=== PATIENT | male | born 1955 ===

== ENCOUNTER 2017-01-28 19:27 | Inpatient (IN) | payer SELFPAY ==
[2017-01-28 19:27] VITALS: BMI 31.9
[2017-01-28] MEDS ORDERED: Albuterol-Ipratrop 3 mg / 0.5 (3 ml) UD ONE ×2 (20:15→21:29)
[2017-01-28] MEDS ORDERED: Albuterol-Ipratrop 3 mg / 0.5 (3 ml) UD IH STA ×3 (20:16→21:19)
--- NOTE | 2017-01-28 20:20 | ED PDOC ---
HPI: SOB/CHF/COPD Time Seen by Provider: 01/28/17 20:04 Chief Complaint (Nursing): Respiratory Distress Chief Complaint (Provider): sob History Per: Patient History/Exam Limitations: no limitations Onset/Duration Of Symptoms: Days (2) Additional History Per: Patient Additional Complaint(s): 61 y/o male presents with shortness of breath x 2 days. Associated cough, with some production of white sputum, nasal drainage, itchy throat. Patient notes pain to chest and ribs with cough. Patient states he was seen on the first floor of the hospital today by a doctor and prescribed an inhaler but it was too expensive. DEnies fever, nausea/vomiting, palpitations, abdominal pain, leg pain/swelling, recent travel, sick contacts. Past Medical History Reviewed: Historical Data, Nursing Documentation, Vital Signs Vital Signs: Last Vital Signs Temp 98.1 F 01/28/17 19:38 Pulse 98 H 01/28/17 22:31 Resp 22 01/28/17 22:31 BP 108/91 H 01/28/17 22:31 Pulse Ox 95 01/28/17 22:42 - Medical History PMH: Back Problems (neck pain/cervical stenosis), CAD, Hypercholesterolemia Denies: Asthma, HIV, HTN, Chronic Kidney Disease - Surgical History Surgical History: No Surg Hx - Family History Family History: States: Unknown Family Hx - Social History Current smoker - smoking cessation education provided: Yes Alcohol: None Drugs: Denies - Immunization History Hx Tetanus Toxoid Vaccination: No (11 years ago) Hx Influenza Vaccination: No Hx Pneumococcal Vaccination: No - Home Medications Home Medications: Ambulatory Orders Medication Instructions Recorded Amoxicillin/Clavulanate [Augmentin 1 tab PO BID #14 tab 10/14/16 875 MG-125 MG] oxyCODONE/Acetaminophen [Percocet 1 ea PO Q6 PRN #10 tab 10/14/16 5/325 mg Tab] - Allergies Allergies/Adverse Reactions: Allergies Allergy/AdvReac Type Severity Reaction Status Date / Time No Known Allergies Allergy Verified 01/28/17 19:38 Review of Systems ROS Statement: Except As Marked, All Systems Reviewed And Found Negative Respiratory: Positive for: Cough, Shortness of Breath Physical Exam - Reviewed Nursing Documentation Reviewed: Yes Vital Signs Reviewed: Yes - Physical Exam Appears: Positive for: Well, Non-toxic, No Acute Distress Head Exam: Positive for: ATRAUMATIC, NORMAL INSPECTION, NORMOCEPHALIC Skin: Positive for: Normal Color Eye Exam: Positive for: Normal appearance ENT: Positive for: Normal ENT Inspection Cardiovascular/Chest: Positive for: Regular Rate, Rhythm Respiratory: Positive for: Wheezing (diffuse expiratory) Gastrointestinal/Abdominal: Positive for: Normal Exam Back: Positive for: Normal Inspection Extremity: Positive for: Normal ROM Neurologic/Psych: Positive for: Alert, Oriented - Laboratory Results Result Diagrams: 01/28/17 20:30 01/28/17 20:30 - ECG ECG: Positive for: Viewed By Me (reviewed by ED attending) ECG Rhythm: Positive for: Sinus Tachycardia, Nonspecific Changes O2 Sat by Pulse Oximetry: 95 - Radiology X-Ray: Viewed By Me X-Ray Interpretation: No Acute Disease - Progress ED Course And Treament: labs, ekg, chest xray, duonebs, IV solumedrol On re-eval, diffuse wheezing still noted. Patient 96% on 2L nasal cannula; drops to 92-93% O2 on room air. Case discussed with FP resident on-call for admission. Disposition - Clinical Impression Clinical Impression: Bronchitis, Hypoxia - Patient ED Disposition Is Patient to be Admitted: Yes - Disposition Disposition Time: 22:56 Condition: FAIR
[2017-01-28 20:55] LABS: ALB/GLOB RATIO 1.4 (1.0-2.1); ALKALINE PHOSPHATASE 79 U/L (38-126); ALT/SGPT 26 U/L (21-72); AST/SGOT 30 U/L (17-59); BILIRUBIN,TOTAL 0.9 mg/dl (0.2-1.3); BLOOD UREA NITROGEN 15 mg/dl (9-20); CALCIUM 9.6 mg/dL (8.4-10.2); CARBON DIOXIDE 23 mmol/L (22-30); CHLORIDE 105 mmol/L (98-107); GFR AFRICAN-AMERICAN > 60; GLUCOSE,RANDOM 96 mg/dL (75-110); POTASSIUM 4.5 MMOL/L (3.6-5.0); SODIUM 141 mmol/l (132-148); TOTAL PROTEIN 8.2 G/DL (6.3-8.2)
[2017-01-28 21:06] LABS: BASO # 0.1 K/uL (0.0-0.2); BASO % 1.1 % (0.0-2.0); EOS # 0.4 K/uL (0.0-0.7); EOS % 6.2 % (0.0-4.0); HEMATOCRIT 46.4 % (35.0-51.0); LYMPH # 0.9 K/uL (1.0-4.3); LYMPH % 14.5 % (20.0-40.0); MEAN CELL VOLUME 89.5 fl (80.0-94.0); MEAN CORPUSCULAR HEMOGLOBIN 29.3 pg (27.0-31.0); MEAN CORPUSCULAR HGB CONC 32.7 g/dL (33.0-37.0); MEAN PLATELET VOLUME 10.4 fl (7.2-11.7); MONO # 0.6 K/uL (0.0-0.8); MONO % 9.6 % (0.0-10.0); NEUT # 4.2 K/uL (1.8-7.0); NEUT % 68.6 % (50.0-75.0); NRBC % 0.1 % (0.0-0.0); RED CELL DISTRIBUTION WIDTH 14.3 % (11.5-14.5); WHITE BLOOD COUNT 6.1 K/uL (4.8-10.8)
--- NOTE | 2017-01-28 23:11 | CP.PCM.HP ---
History of Present Illness - History of Present Illness History of Present Illness: CC: Progressively worsening dyspnea x 2 days 61 y/o M, 1/2 PPD smoker x 44 years admitted due to progressively worsening dyspnea x 2 days. Associated cough, with some production of white sputum, nasal drainage, itchy throat. Patient also notes pleuritic chest pain during coughing. Denies fever, chills, change in appetite, recent weight loss/gain/ edema/ nausea/vomiting, palpitations, abdominal pain, leg pain/swelling, recent travel, sick contacts. Not taking any medications previously, can walk 5-6 blocks w/o feeling SOB, can climb 1-2 flights of stairs. Patient was seen by cardio, Dr Duffy today for evaluation of dyspnea with previous discrepancy of EF between last ECHO and Lexiscan. Patient was prescribed Advair but did not fill it due to increased cost of the medicine. Ended up in ER due to SOB. PMD: [facility] PMH: varicose veins PSH: denies SH: 1/2 PPD smoker x 44 years, social eTOH, denies drugs Allergies: NKDA Meds: none ED course: labs, ekg, chest xray, duonebsx 3, IV solumedrol 125 mg x 1 Patient 96% on 2L nasal cannula; drops to 92-93% O2 on room air. Present on Admission - Present on Admission Any Indicators Present on Admission: No Review of Systems - Review of Systems Review of Systems: see hpi Past Patient History - Infectious Disease Hx of Infectious Diseases: None - Tetanus Immunizations Tetanus Immunization: Unknown - Past Medical History & Family History Past Medical History?: Yes - Past Social History Alcohol: None Drugs: Denies - CARDIAC Hx Hypercholesterolemia: Yes Hx Hypertension: No - PULMONARY Hx Asthma: No - NEUROLOGICAL Other/Comment: neck pain, headaches - HEENT Hx HEENT Problems: No - RENAL Hx Chronic Kidney Disease: No - ENDOCRINE/METABOLIC Hx Endocrine Disorders: No - HEMATOLOGICAL/ONCOLOGICAL Hx Human Immunodeficiency Virus (HIV): No - INTEGUMENTARY Hx Dermatological Problems: No - MUSCULOSKELETAL/RHEUMATOLOGICAL Hx Musculoskeletal Disorders: Yes (neck pain, headaches) Hx Falls: No Other/Comment: spinal stenosis - GASTROINTESTINAL Hx Gastrointestinal Disorders: No - GENITOURINARY/GYNECOLOGICAL Hx Genitourinary Disorders: No - PSYCHIATRIC Hx Psychophysiologic Disorder: No Hx Substance Use: No - SURGICAL HISTORY Hx Surgeries: Yes Other/Comment: Neck surgery - ANESTHESIA Hx Anesthesia: Yes Meds Allergies/Adverse Reactions: Allergies Allergy/AdvReac Type Severity Reaction Status Date / Time No Known Allergies Allergy Verified 01/28/17 19:38 Physical Exam - Constitutional Appears: Non-toxic, No Acute Distress - Head Exam Head Exam: ATRAUMATIC - Eye Exam Eye Exam: EOMI Pupil Exam: PERRL - ENT Exam ENT Exam: Mucous Membranes Moist - Neck Exam Neck exam: Positive for: Full Rom. Negative for: Tenderness - Respiratory Exam Respiratory Exam: Decreased Breath Sounds, Wheezes. absent: Accessory Muscle Use, Rales, Rhonchi, Respiratory Distress, Stridor Additional comments: BL lower lung bases decreased breath sounds; diffuse expiratory and inspiratory wheezing, no accessory muscle use - Cardiovascular Exam Cardiovascular Exam: +S1 - GI/Abdominal Exam GI & Abdominal Exam: Normal Bowel Sounds, Soft. absent: Guarding, Rigid, Tenderness - Extremities Exam Extremities exam: Positive for: normal inspection, pedal pulses present. Negative for: calf tenderness, pedal edema - Neurological Exam Neurological exam: Alert, Oriented x3 - Psychiatric Exam Psychiatric exam: Normal Affect, Normal Mood - Skin Skin Exam: Dry, Normal Color, Warm Results - Vital Signs Recent Vital Signs: Last Vital Signs Temp 98.1 F 01/28/17 19:38 Pulse 98 H 01/28/17 22:31 Resp 22 01/28/17 22:31 BP 108/91 H 01/28/17 22:31 Pulse Ox 95 01/28/17 22:58 - Labs Result Diagrams: 01/28/17 20:30 01/28/17 20:30 Labs: Laboratory Results - last 24 hr 01/28/17 01/28/17 01/28/17 20:30 20:30 20:30 WBC 6.1 RBC 5.18 Hgb 15.2 Hct 46.4 MCV 89.5 D MCH 29.3 MCHC 32.7 L RDW 14.3 Plt Count 193 MPV 10.4 Neut % (Auto) 68.6 Lymph % (Auto) 14.5 L [place] % (Auto) 9.6 Eos % (Auto) 6.2 H Baso % (Auto) 1.1 Neut # 4.2 Lymph # 0.9 L [place] # 0.6 Eos # 0.4 Baso # 0.1 Sodium 141 Potassium 4.5 Chloride 105 Carbon Dioxide 23 Anion Gap 18 BUN 15 Creatinine 0.9 Est GFR ( Amer) > 60 Est GFR (Non-Af Amer) > 60 Random Glucose 96 Calcium 9.6 Total Bilirubin 0.9 AST 30 ALT 26 Alkaline Phosphatase 79 Troponin I < 0.0120 NT-Pro-B Natriuret Pep 120 Total Protein 8.2 Albumin 4.8 Globulin 3.4 Albumin/Globulin Ratio 1.4 Influenza Typ A,B (EIA) Negative for flu a/b Assessment & Plan - Assessment and Plan (Free Text) Plan: 61 y/o M, 1/2 PPD smoker x 44 years admitted due to progressively worsening dyspnea x 2 days. Dyspnea likely 2/2 COPD, evaluated by cardiology as outpatient 01/28, no cardiac etiology at present time ED course: labs, ekg, chest xray, duonebsx 3, IV solumedrol 125 mg x 1 pro bnp 120, trop x 1 negative, cxr does not reveal cardiomegaly Patient 96% on 2L nasal cannula; drops to 92-93% O2 on room air. admit to telemetry pulse oximetry O2 NC 2L cont Duonebs IH QID MELISSA Prednisone 40 mg daily reassess in AM, optimize COPD home regimen PPx DVT - SCDs and ambulate Diet HH
[2017-01-29] MEDS ORDERED: Albuterol-Ipratrop 3 mg / 0.5 (3 ml) UD INH SCH (01:00)
[2017-01-29] MEDS ORDERED: Pneumococcal 23-Valent Vaccine IM ONE (06:00)
[2017-01-29 07:29] LABS: HEMATOCRIT 44.3 % (35.0-51.0); MEAN CELL VOLUME 89.1 fl (80.0-94.0); MEAN CORPUSCULAR HGB CONC 32.6 g/dL (33.0-37.0); RED CELL DISTRIBUTION WIDTH 14.4 % (11.5-14.5); WHITE BLOOD COUNT 4.8 K/uL (4.8-10.8)
[2017-01-29 07:31] LABS: BLOOD UREA NITROGEN 14 mg/dl (9-20); CALCIUM 9.6 mg/dL (8.4-10.2); CARBON DIOXIDE 22 mmol/L (22-30); CHLORIDE 104 mmol/L (98-107); GFR AFRICAN-AMERICAN > 60; GLUCOSE,RANDOM 144 mg/dL (75-110); POTASSIUM 3.8 MMOL/L (3.6-5.0); SODIUM 142 mmol/l (132-148)
[2017-01-29] MEDS: Albuterol-Ipratrop 3 mg / 0.5 (3 ml) UD INH SCH ×4 (07:39→19:30)
[2017-01-29] MEDS ORDERED: Sodium Chloride 3% for Inhalation 4 ML VIAL.NEB IH PRN (09:40)
--- NOTE | 2017-01-29 10:01 | RAD ---
HISTORY: cough, wheezing COMPARISON: 12/17/2016. FINDINGS: LUNGS: No active pulmonary disease. PLEURA: No significant pleural effusion identified, no pneumothorax apparent. CARDIOVASCULAR: Normal. OSSEOUS STRUCTURES: No significant abnormalities. VISUALIZED UPPER ABDOMEN: Normal. OTHER FINDINGS: None. IMPRESSION: No active disease. No significant interval change compared to the prior examination(s).
--- NOTE | 2017-01-29 11:14 | CP.PCM.PN ---
Subjective - Date & Time of Evaluation Date of Evaluation: 01/29/17 Time of Evaluation: 07:20 - Subjective Subjective: Patient seen and evaluated this morning. NO acute distress. He is on NC O2, denies CP, palpitations, headache, fever, vomiting. C/O productive cough that has improved since yesterday. Patient reports Hx of hemoptisis in the past more than 20 years ago. Sputum sample collected overnight and will be send. Patient was seen by Dr Duffy(Cardio) at the clinic for SOB and outpatient notes were reviewed on [facility]. As per Cardio patient SOB most likely origin is respiratory. Objective - Vital Signs/Intake and Output Vital Signs (last 24 hours): Temp Pulse Resp BP Pulse Ox 97.8 F 72 18 120/73 95 01/29/17 08:18 01/29/17 08:18 01/29/17 08:18 01/29/17 08:18 01/29/17 08:18 - Medications Medications: Current Medications Acetaminophen (Tylenol 325mg Tab) 650 mg PO Q6 PRN PRN Reason: Fever >100.4 F Albuterol/Ipratropium (Duoneb 3 Mg/0.5 Mg (3 Ml) Ud) 3 ml INH RQID [facility] Last Admin: 01/29/17 07:39 Dose: 3 ml Levofloxacin/Dextrose (Levaquin 750mg) 750 mg in 150 mls @ 100 mls/hr IVPB DAILY [facility] Prednisone (Prednisone Tab) 40 mg PO DAILY [facility] Last Admin: 01/29/17 08:37 Dose: 40 mg - Labs Labs: 01/29/17 07:00 01/29/17 05:05 - Constitutional Appears: Non-toxic - Eye Exam Eye Exam: PERRL - ENT Exam ENT Exam: Mucous Membranes Moist - Respiratory Exam Respiratory Exam: Wheezes. absent: Rales (diffuse b/l), Respiratory Distress - Cardiovascular Exam Cardiovascular Exam: REGULAR RHYTHM, +S1, +S2. absent: Gallop, Murmur - GI/Abdominal Exam GI & Abdominal Exam: Soft, Normal Bowel Sounds. absent: Distended, Rebound - Extremities Exam Extremities Exam: Full ROM, Normal Capillary Refill, Normal Inspection - Neurological Exam Neurological Exam: Alert, Awake, Oriented x3 Neuro motor strength exam: Left Upper Extremity: 5, Right Upper Extremity: 5, Left Lower Extremity: 5, Right Lower Extremity: 5 - Psychiatric Exam Psychiatric exam: Normal Affect, Normal Mood - Skin Skin Exam: Normal Color, Warm Assessment and Plan - Assessment and Plan (Free Text) Assessment: 61 y/o M, 1/2 PPD smoker x 44 years admitted due to SOB. SOB most likely COPD exacerbation rule out Pneumonia Improved possible COPD exacerbation(chronic smoker) evaluated by cardiology as outpatient 01/28, no cardiac etiology at present time chest xray reported as normal. Hx of hemoptisis Chest CT ordered Sputum for AFB, Cx and Citology Patient placed on isolation [facility] QID MELISSA Prednisone 40 mg daily Start Levaquin 750mg daily for now pending CT/Cx results Pulmonology consult(Dr Salamanca) Prophylactic measures PPx DVT - SCDs and ambulate
[2017-01-29] MEDS: levoFLOXacin 750 mg in D5W 750 MG/150 ML BAG IVPB SCH (11:37)
--- NOTE | 2017-01-29 13:33 | CARD ---
APPROVED REPORT EKG Measurement Heart [id number] <Conclusion> Sinus tachycardia Nonspecific ST abnormality Abnormal ECG
[2017-01-30 05:49] LABS: BASO % 0.3 % (0.0-2.0); EOS % 0.7 % (0.0-4.0); HEMATOCRIT 40.2 % (35.0-51.0); LYMPH # 1.5 K/uL (1.0-4.3); LYMPH % 23.8 % (20.0-40.0); MEAN CELL VOLUME 89.1 fl (80.0-94.0); MEAN CORPUSCULAR HEMOGLOBIN 29.4 pg (27.0-31.0); MEAN CORPUSCULAR HGB CONC 32.9 g/dL (33.0-37.0); MEAN PLATELET VOLUME 10.1 fl (7.2-11.7); MONO # 0.7 K/uL (0.0-0.8); NEUT % 64.2 % (50.0-75.0); RED CELL DISTRIBUTION WIDTH 14.3 % (11.5-14.5); WHITE BLOOD COUNT 6.3 K/uL (4.8-10.8)
[2017-01-30] MEDS: Albuterol-Ipratrop 3 mg / 0.5 (3 ml) UD INH SCH ×4 (09:24→19:21)
[2017-01-30] MEDS: levoFLOXacin 750 mg in D5W 750 MG/150 ML BAG IVPB SCH (09:25)
--- NOTE | 2017-01-30 14:19 | CT ---
PROCEDURE: CT Chest without contrast HISTORY: Cough/SOB/Smoker COMPARISON: None. TECHNIQUE: Contiguous axial images were obtained through the chest without intravenous contrast enhancement. Sagittal and coronal reconstructions were performed. Radiation dose (DLP): 655.47 mGy-cm. This CT exam was performed using one or more of the following dose reduction techniques: Automated exposure control, adjustment of the mA and/or kV according to patient size, and/or use of iterative reconstruction technique. FINDINGS: LUNGS: Increased interstitial markings compatible with lower airways disease. No discrete pulmonary infiltrates. Mild atelectatic changes bibasilar distribution. Similar changes in the lingula. MEDIASTINUM: Unremarkable thoracic aorta. No aneurysm. Normal sized heart. Main pulmonary artery unremarkable. No vascular congestion. No lymphadenopathy. PLEURA: No pleural fluid. No pneumothorax. BONES: No fracture. No destructive lesion. UPPER ABDOMEN: Grossly unremarkable. OTHER FINDINGS: None. IMPRESSION: No significant interstitial lung disease. Prominent central pulmonary markings compatible with lower airways disease, bronchitis. No discrete infiltrates
[2017-01-30] MEDS: Enoxaparin 40 mg Syringe SC SCH (14:58)
--- NOTE | 2017-01-30 15:03 | CP.PCM.PN ---
Subjective - Date & Time of Evaluation Date of Evaluation: 01/30/17 Time of Evaluation: 10:50 - Subjective Subjective: 61 y/o seen at bedside. no acute events overnight. Patient in ICU because no isolation bed available in floor. He states SOB and cough have improved, no hemoptysis. Denies CP, palpitations, vomiting, fever or nausea. Patient for chest CT today. Sputum being collected and results pending. Tolerating PO. Patient offered nicotin patch but states he has not felt the urge to smoke while in the hosp so far. Objective - Vital Signs/Intake and Output Vital Signs (last 24 hours): Temp Pulse Resp BP Pulse Ox 97.6 F 69 11 L 114/67 100 01/30/17 12:27 01/30/17 13:00 01/30/17 13:00 01/30/17 13:00 01/30/17 13:00 Intake and Output: 01/30/17 01/30/17 06:59 18:59 Intake Total 1160 800 Output Total 2400 300 Balance -1240 500 - Medications Medications: Current Medications Acetaminophen (Tylenol 325mg Tab) 650 mg PO Q6 PRN PRN Reason: Fever >100.4 F Albuterol/Ipratropium (Duoneb 3 Mg/0.5 Mg (3 Ml) Ud) 3 ml INH RQID [facility] Last Admin: 01/30/17 12:07 Dose: 3 ml Enoxaparin Sodium (Lovenox) 40 mg SC DAILY [facility] PRN Reason: Protocol Last Admin: 01/30/17 14:58 Dose: 40 mg Levofloxacin/Dextrose (Levaquin 750mg) 750 mg in 150 mls @ 100 mls/hr IVPB DAILY [facility] Last Admin: 01/30/17 09:25 Dose: 100 mls/hr Prednisone (Prednisone Tab) 40 mg PO DAILY [facility] Last Admin: 01/30/17 09:26 Dose: 40 mg - Labs Labs: 01/30/17 04:30 - Constitutional Appears: Non-toxic, No Acute Distress - Eye Exam Eye Exam: EOMI, PERRL - ENT Exam ENT Exam: Mucous Membranes Moist - Neck Exam Neck Exam: Full ROM - Respiratory Exam Respiratory Exam: Rhonchi. absent: Decreased Breath Sounds, Rales, Wheezes - Cardiovascular Exam Cardiovascular Exam: REGULAR RHYTHM, +S1, +S2 - GI/Abdominal Exam GI & Abdominal Exam: Soft, Normal Bowel Sounds. absent: Distended, Rebound - Extremities Exam Extremities Exam: Full ROM, Normal Capillary Refill, Normal Inspection - Neurological Exam Neurological Exam: Alert, Awake, Oriented x3 - Psychiatric Exam Psychiatric exam: Normal Affect, Normal Mood - Skin Skin Exam: Intact, Normal Color, Warm Assessment and Plan - Assessment and Plan (Free Text) Assessment: 61 y/o M, 1/2 PPD smoker x 44 years admitted due to SOB. SOB most likely COPD exacerbation Improved possible COPD exacerbation(chronic smoker) evaluated by cardiology as outpatient 01/28, no cardiac etiology at present time chest xray reported as normal. Hx of hemoptisis Chest CT: +for Bronchitis(please see full report) Sputum for AFB, Cx and Citology pending Gram+ for gram +cocci Patient on isolation Duonebs QID MELISSA Prednisone 40 mg daily Levaquin 750mg daily for now pending CT/Cx results Pulmonology consult(Dr Salamanca) Prophylactic measures PPx DVT - SCDs and ambulate Lovenox 40mg daily
--- NOTE | 2017-01-30 21:31 | CP.PCM.CON ---
History of Present Illness - History of Present Illness History of Present Illness: Patient seen and examined; chart reviewed; full consult to follow. Cont same treatment for now. Patient stated to me in [place]; this all followed being exposed to paint fumes the day before. Past Patient History - Infectious Disease Hx of Infectious Diseases: None - Tetanus Immunizations Tetanus Immunization: Unknown - Past Medical History & Family History Past Medical History?: Yes - Past Social History Smoking Status: Smoker Currrent Status Unknown - CARDIAC Hx Cardiac Disorders: Yes Hx Hypercholesterolemia: Yes - PULMONARY Hx Asthma: No - NEUROLOGICAL Other/Comment: neck pain, headaches - HEENT Hx HEENT Problems: Yes Other/Comment: Uses glasses nearsighted and farsighted. - RENAL Hx Chronic Kidney Disease: No - ENDOCRINE/METABOLIC Hx Endocrine Disorders: No - HEMATOLOGICAL/ONCOLOGICAL Hx Human Immunodeficiency Virus (HIV): No - INTEGUMENTARY Hx Dermatological Problems: No - MUSCULOSKELETAL/RHEUMATOLOGICAL Hx Musculoskeletal Disorders: Yes (neck pain, headaches) Hx Back Pain: Yes Hx Falls: Yes Other/Comment: spinal stenosis - GASTROINTESTINAL Hx Gastrointestinal Disorders: No - GENITOURINARY/GYNECOLOGICAL Hx Genitourinary Disorders: No - PSYCHIATRIC Hx Psychophysiologic Disorder: No Hx Substance Use: No - SURGICAL HISTORY Hx Surgeries: Yes Other/Comment: Neck surgery - ANESTHESIA Hx Anesthesia: Yes Hx Anesthesia Reactions: No Hx Malignant Hyperthermia: No Has any member of the family had a problem w/ anesthesia?: No Meds Allergies/Adverse Reactions: Allergies Allergy/AdvReac Type Severity Reaction Status Date / Time No Known Allergies Allergy Verified 01/28/17 19:38 - Medications Medications: Current Medications Acetaminophen (Tylenol 325mg Tab) 650 mg PO Q6 PRN PRN Reason: Fever >100.4 F Albuterol/Ipratropium (Duoneb 3 Mg/0.5 Mg (3 Ml) Ud) 3 ml INH RQID [facility] Last Admin: 01/30/17 19:21 Dose: 3 ml Enoxaparin Sodium (Lovenox) 40 mg SC DAILY [facility] PRN Reason: Protocol Last Admin: 01/30/17 14:58 Dose: 40 mg Levofloxacin/Dextrose (Levaquin 750mg) 750 mg in 150 mls @ 100 mls/hr IVPB DAILY [facility] Last Admin: 01/30/17 09:25 Dose: 100 mls/hr Prednisone (Prednisone Tab) 40 mg PO DAILY [facility] Last Admin: 01/30/17 09:26 Dose: 40 mg Results - Vital Signs Recent Vital Signs: Last Vital Signs Temp 97 F L 01/30/17 20:02 Pulse 110 H 01/30/17 20:02 Resp 25 H 01/30/17 20:02 BP 138/82 01/30/17 20:02 Pulse Ox 99 01/30/17 20:02 - Labs Result Diagrams: 01/30/17 04:30 01/29/17 05:05 Labs: Laboratory Results - last 24 hr 01/30/17 04:30 WBC 6.3 RBC 4.52 Hgb 13.3 Hct 40.2 MCV 89.1 MCH 29.4 MCHC 32.9 L RDW 14.3 Plt Count 176 MPV 10.1 Neut % (Auto) 64.2 Lymph % (Auto) 23.8 [place] % (Auto) 11.0 H Eos % (Auto) 0.7 Baso % (Auto) 0.3 Neut # 4.0 Lymph # 1.5 [place] # 0.7 Eos # 0.0 Baso # 0.0
[2017-01-31] MEDS: levoFLOXacin 750 mg in D5W 750 MG/150 ML BAG IVPB SCH (09:04)
--- NOTE | 2017-01-31 09:06 | RAD ---
HISTORY: Repeat pneumonia. Portable study 04:55. COMPARISON: 01/28/2017 single-view chest. January 30, 2017. CT thorax. FINDINGS: LUNGS: No active pulmonary disease. PLEURA: No significant pleural effusion identified, no pneumothorax apparent. CARDIOVASCULAR: Normal. OSSEOUS STRUCTURES: No significant abnormalities. VISUALIZED UPPER ABDOMEN: Normal. OTHER FINDINGS: None. IMPRESSION: No active disease. No significant interval change compared to the prior examination(s).
[2017-01-31] MEDS: Albuterol-Ipratrop 3 mg / 0.5 (3 ml) UD INH SCH ×4 (09:14→19:21)
--- NOTE | 2017-01-31 11:58 | CP.PCM.PN ---
Subjective - Date & Time of Evaluation Date of Evaluation: 01/31/17 Time of Evaluation: 09:05 - Subjective Subjective: 60 y/o M seen at bedside admitted for COPD exacerbation, feeling better, he say SOB has markedly improved, still sporadic cough but improved. Tolerating PO reg diet. Denies CP, palpitations, calf pain, headaches. He is afebrile Objective - Vital Signs/Intake and Output Vital Signs (last 24 hours): Temp Pulse Resp BP Pulse Ox 97.5 F L 82 12 126/80 94 L 01/31/17 08:40 01/31/17 08:40 01/31/17 08:40 01/31/17 08:40 01/31/17 08:40 Intake and Output: 01/31/17 01/31/17 06:59 18:59 Intake Total 100 Output Total 1550 Balance -1450 - Medications Medications: Current Medications Acetaminophen (Tylenol 325mg Tab) 650 mg PO Q6 PRN PRN Reason: Fever >100.4 F Albuterol/Ipratropium (Duoneb 3 Mg/0.5 Mg (3 Ml) Ud) 3 ml INH RQID [facility] Last Admin: 01/31/17 09:14 Dose: 3 ml Enoxaparin Sodium (Lovenox) 40 mg SC DAILY [facility] PRN Reason: Protocol Last Admin: 01/30/17 14:58 Dose: 40 mg Levofloxacin/Dextrose (Levaquin 750mg) 750 mg in 150 mls @ 100 mls/hr IVPB DAILY [facility] Last Admin: 01/31/17 09:04 Dose: 100 mls/hr Prednisone (Prednisone Tab) 40 mg PO DAILY [facility] Stop: 01/31/17 23:59 Last Admin: 01/31/17 09:04 Dose: 40 mg Prednisone (Prednisone Tab) 20 mg PO DAILY [facility] - Labs Labs: 01/30/17 04:30 - Constitutional Appears: Non-toxic, No Acute Distress - Head Exam Head Exam: NORMAL INSPECTION - Eye Exam Eye Exam: PERRL - ENT Exam ENT Exam: Mucous Membranes Moist - Respiratory Exam Respiratory Exam: Rhonchi (scattered b/l), NORMAL BREATHING PATTERN - Cardiovascular Exam Cardiovascular Exam: REGULAR RHYTHM, +S1, +S2. absent: Gallop - GI/Abdominal Exam GI & Abdominal Exam: Soft, Normal Bowel Sounds - Neurological Exam Neurological Exam: Alert, Awake, Oriented x3 Neuro motor strength exam: Left Upper Extremity: 5, Right Upper Extremity: 5, Left Lower Extremity: 5, Right Lower Extremity: 5 - Psychiatric Exam Psychiatric exam: Normal Affect, Normal Mood - Skin Skin Exam: Intact, Normal Color, Warm Assessment and Plan - Assessment and Plan (Free Text) Assessment: 61 y/o M, 1/2 PPD smoker x 44 years admitted due to SOB. SOB most likely COPD exacerbation Improved possible COPD exacerbation(chronic smoker) evaluated by cardiology as outpatient 01/28, no cardiac etiology at present time Hx of hemoptisis AFB sputum x1 neg Quantiferon negative Patient on isolation until sputum x3 neg: TB very unlikely Duonebs IH QID MELISSA Prednisone 20 mg daily Levaquin 750mg daily for now pending CT/Cx results Pulmonology consult(Dr Salamanca) PT eval and treatment ordered. Bacterial Bronchitis Chest CT:finding compatible with Bronchitis(please see full report) Gram prelim sputum Cx + for gram +cocci Cont Levaquin to complete 7 days Prophylactic measures PPx DVT - SCDs and ambulate Lovenox 40mg daily
--- NOTE | 2017-01-31 23:37 | CP.PCM.PN ---
Subjective - Subjective Subjective: COPD ex. Being r/o for TB, unlikely given paucity of other Sx. 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 former smoker. NKDA, Sx: Feeling much better. O/vss afebrile Head Neg adeno, Neg JVD Heart RRR Ns1S2 Neg M Lungs, bilateral air entry, slight decrease in Left apex. Abdo, s, nt, pos bs no c,c,e Neuro GNF a/p COPD, Chemical Bronchitis inducing exacerbation. I do not consider this to be PTB at all. Cont current abx. Monitor wbc #, temp curve, and cultures. Continue to r/o with serial AFB studies. Cont steriods and nebulized duonebs. PUD and DVT Px. Signing out of case; taper steroids, and re-consult PRN. If continues stable, change steroids and abx to po, and to f/u with me at my office. [phone] Objective - Vital Signs/Intake and Output Vital Signs (last 24 hours): Temp Pulse Resp BP Pulse Ox 97.7 F 90 25 H 119/93 H 97 01/31/17 20:00 01/31/17 20:00 01/31/17 20:00 01/31/17 20:00 01/31/17 20:00 Intake and Output: 01/31/17 02/01/17 18:59 06:59 Intake Total 1690 120 Output Total 1000 Balance 1690 -880 - Medications Medications: Current Medications Acetaminophen (Tylenol 325mg Tab) 650 mg PO Q6 PRN PRN Reason: Fever >100.4 F Albuterol/Ipratropium (Duoneb 3 Mg/0.5 Mg (3 Ml) Ud) 3 ml INH RQID [facility] Last Admin: 01/31/17 19:21 Dose: Not Given Enoxaparin Sodium (Lovenox) 40 mg SC DAILY [facility] PRN Reason: Protocol Last Admin: 01/30/17 14:58 Dose: 40 mg Levofloxacin/Dextrose (Levaquin 750mg) 750 mg in 150 mls @ 100 mls/hr IVPB DAILY [facility] Last Admin: 01/31/17 09:04 Dose: 100 mls/hr Prednisone (Prednisone Tab) 40 mg PO DAILY [facility] Stop: 01/31/17 23:59 Last Admin: 01/31/17 09:04 Dose: 40 mg Prednisone (Prednisone Tab) 20 mg PO DAILY [facility] - Labs Labs: 01/30/17 04:30
[2017-02-01] MEDS: Albuterol-Ipratrop 3 mg / 0.5 (3 ml) UD INH SCH ×2 (09:18→12:12)
[2017-02-01] MEDS ORDERED: levoFLOXacin 750 MG TAB PO SCH (10:00)
[2017-02-01] MEDS: Enoxaparin 40 mg Syringe SC SCH (10:51)
--- NOTE | 2017-02-01 11:12 | CP.PCM.DIS ---
Provider - Provider Date of Admission: 01/29/17 13:05 Attending physician: Lashawn Leonardo MD Consults: Pulmonology(Dr Salamanca) Time Spent in preparation of Discharge (in minutes): 30 Diagnosis - Discharge Diagnosis (1) COPD exacerbation Status: Acute Comment: IMproved. Albuterol HFA and Follow with pulm as outpatient (2) Bronchitis Status: Acute Comment: improved. Finished 5 days abx Hospital Course - Lab Results Lab Results: Micro Results 01/30/17 11:02 Other: Please Indicate Mycobacterial Culture - Preliminary 01/29/17 17:20 Sputum Gram Stain - Final 01/29/17 17:20 Sputum Sputum Culture - Final NORMAL ORAL DYLAN 01/29/17 17:20 Naris MRSA Culture (Admit) - Final MRSA NOT DETECTED Most Recent Lab Values WBC 6.3 K/uL (4.8-10.8) 01/30/17 04:30 RBC 4.52 Mil/uL (4.40-5.90) 01/30/17 04:30 Hgb 13.3 g/dL (12.0-18.0) 01/30/17 04:30 Hct 40.2 % (35.0-51.0) 01/30/17 04:30 MCV 89.1 fl (80.0-94.0) 01/30/17 04:30 MCH 29.4 pg (27.0-31.0) 01/30/17 04:30 MCHC 32.9 g/dL (33.0-37.0) L 01/30/17 04:30 RDW 14.3 % (11.5-14.5) 01/30/17 04:30 Plt Count 176 K/uL (130-400) 01/30/17 04:30 MPV 10.1 fl (7.2-11.7) 01/30/17 04:30 Neut % (Auto) 64.2 % (50.0-75.0) 01/30/17 04:30 Lymph % (Auto) 23.8 % (20.0-40.0) 01/30/17 04:30 [place] % (Auto) 11.0 % (0.0-10.0) H 01/30/17 04:30 Eos % (Auto) 0.7 % (0.0-4.0) 01/30/17 04:30 Baso % (Auto) 0.3 % (0.0-2.0) 01/30/17 04:30 Neut # 4.0 K/uL (1.8-7.0) 01/30/17 04:30 Lymph # 1.5 K/uL (1.0-4.3) 01/30/17 04:30 [place] # 0.7 K/uL (0.0-0.8) 01/30/17 04:30 Eos # 0.0 K/uL (0.0-0.7) 01/30/17 04:30 Baso # 0.0 K/uL (0.0-0.2) 01/30/17 04:30 Sodium 142 mmol/l (132-148) 01/29/17 05:05 Potassium 3.8 MMOL/L (3.6-5.0) 01/29/17 05:05 Chloride 104 mmol/L (98-107) 01/29/17 05:05 Carbon Dioxide 22 mmol/L (22-30) 01/29/17 05:05 Anion Gap 20 (10-20) 01/29/17 05:05 BUN 14 mg/dl (9-20) 01/29/17 05:05 Creatinine 0.9 mg/dL (0.8-1.5) 01/29/17 05:05 Est GFR ( Amer) > 60 01/29/17 05:05 Est GFR (Non-Af Amer) > 60 01/29/17 05:05 Random Glucose 144 mg/dL (75-110) H 01/29/17 05:05 Calcium 9.6 mg/dL (8.4-10.2) 01/29/17 05:05 Total Bilirubin 0.9 mg/dl (0.2-1.3) 01/28/17 20:30 AST 30 U/L (17-59) 01/28/17 20:30 ALT 26 U/L (21-72) 01/28/17 20:30 Alkaline Phosphatase 79 U/L (38-126) 01/28/17 20:30 Troponin I < 0.0120 ng/mL (0.00-0.120) 01/28/17 20:30 NT-Pro-B Natriuret Pep 120 pg/ml (0-900) 01/28/17 20:30 Total Protein 8.2 G/DL (6.3-8.2) 01/28/17 20:30 Albumin 4.8 g/dL (3.5-5.0) 01/28/17 20:30 Globulin 3.4 gm/dL (2.2-3.9) 01/28/17 20:30 Albumin/Globulin Ratio 1.4 (1.0-2.1) 01/28/17 20:30 HIV-1 Ab Rapid Screen Non reactive (NON REAC) 01/31/17 05:05 Influenza Typ A,B (EIA) Negative for flu a/b (NEGATIVE) 01/28/17 20:30 TB Test (QFT) Nil 0.02 IU/mL 01/29/17 12:30 TB Test Mitogen - Nil 0.59 IU/mL 01/29/17 12:30 TB Test TB - Nil <0.00 IU/mL 01/29/17 12:30 TB Test (QFT) Negative (Negative) 01/29/17 12:30 - Hospital Course Hospital Course: 61 y/o M with PMHx of tobacco abuse was admitted to hosp because of SOB and productive cough. Pt has Hx of Pneumonia with hemoptysis in the past many years ago. He is chronic smoker of 1/2 pack daily. XRay/CT chest showed signs consistent with bronchitis and he was treated with Levofloxacin for 5 days, nebulizers and steroids. 2 Sputum for AFB were negative as well as quantiferon test. Patient improved successfully and on 02/01/17 was discharge home asymptomatic and f/u as outpatient with PMD and Pulmonology(Dr Salamanca) for COPD management. Home meds at DC: Albuterol HFA Inh 2 puff q6h PRN for SOB Discharge Exam - Head Exam Head Exam: NORMAL INSPECTION - Eye Exam Eye Exam: EOMI, PERRL - Respiratory Exam Respiratory Exam: Clear to PA & Lateral, NORMAL BREATHING PATTERN, UNREMARKABLE - Cardiovascular Exam Cardiovascular Exam: REGULAR RHYTHM, +S1, +S2. absent: Gallop - GI/Abdominal Exam GI & Abdominal Exam: Normal Bowel Sounds, Unremarkable - Extremities Exam Extremities exam: full ROM - Neurological Exam Neurological exam: Alert, Normal Gait, Oriented x3, Reflexes Normal - Psychiatric Exam Psychiatric exam: Normal Affect, Normal Mood - Skin Skin Exam: Normal Color, Warm Discharge Plan - Discharge Medications Prescriptions: Albuterol HFA [Ventolin HFA 90 mcg/actuation (8 g)] 2 puff IH [id number] PRN #1 puff PRN Reason: Shortness Of Breath - Follow Up Plan Condition: FAIR Disposition: HOME/ ROUTINE Additional Instructions: F/U with PMd in 2-3days F/U with Pulmonology (Dr Salamanca) within 1 week. Smoking cessation need discussed with patient.
[2017-02-01 13:27] VITALS: BP 128/67; PULSE 84; RESP 21; TEMP 98; O2SAT 96
== END 2017-02-01 13:15 | disposition home or self-care (01) | DRG 88 ==
LOC: H.ER 19:27 → H.ERHOLD 22:53 → H.TEL 01-29 00:16 → H.ICU/CCU 01-29 12:18 → OBSVTOIN 01-29 13:05
PROVIDERS: ADMIT Family Medicine Geriatric Medicine; ATTEND Family Medicine Geriatric Medicine
PROC: 3E0F7GC Introduction of Other Therapeutic Substance into Respiratory Tract, Via Natural or Artificial Opening (ICD-10-PCS; principal; 2017-01-29)
PROC: 3E0234Z Introduction of Serum, Toxoid and Vaccine into Muscle, Percutaneous Approach (ICD-10-PCS; 2017-01-29)
DX: J44.1 Chronic obstructive pulmonary disease with (acute) exacerbation (principal); J68.0 Bronchitis and pneumonitis due to chemicals, gases, fumes and vapors; F17.200 Nicotine dependence, unspecified, uncomplicated; I25.10 Atherosclerotic heart disease of native coronary artery without angina pectoris; E78.00 Pure hypercholesterolemia, unspecified; Z23 Encounter for immunization

== ENCOUNTER 2017-03-30 01:58 | Observation (INO) | payer SELFPAY ==
[2017-03-30 01:58] VITALS: BMI 31.9
[2017-03-30] MEDS ORDERED: Albuterol-Ipratrop 3 mg / 0.5 (3 ml) UD INH STA ×4 (02:25→03:41)
[2017-03-30] MEDS ORDERED: methylPREDNISolone 125 MG in Sodium Chloride 0.9% 50 ML IVPB STA (02:25)
--- NOTE | 2017-03-30 02:28 | ED PDOC ---
HPI: SOB/CHF/COPD Time Seen by Provider: 03/30/17 02:01 Chief Complaint (Nursing): Respiratory Distress Chief Complaint (Provider): Shortness of breath History Per: Patient History/Exam Limitations: intoxication, language barrier Onset/Duration Of Symptoms: Days Current Symptoms Are (Timing): Still Present Initiating Event: Out Of Medications Current Respiratory Medications: See Home Med List Severity: Severe Associated Symptoms: denies: Fever, Chills, Chest Pain, Productive Cough Similar Symptoms Previously: yes in January 2017 Recently: Hospitalized Additional History Per: Patient Additional Complaint(s): 61 y/o male with an extensive cardiac history admitted in January for COPD exacerbation, presenting to ED via ambulance with cc of respiratory distress; pt reports he run out of his breathing medication and has been using his granddaughter's asthma pump but for the last 4 days, he has not been able to sleep due to being very short of breath. Denies any associated cough, fever, chest pain, palpitations, chills or productive cough. Reports he has not been able to see the Assistant Plant Controller he was referred to after last admission, as he has not been able to make an appointment. Past Medical History Vital Signs: Last Vital Signs Temp 98.3 F 03/30/17 04:06 Pulse 90 03/30/17 04:06 Resp 20 03/30/17 04:06 BP 124/65 03/30/17 04:06 Pulse Ox 98 03/30/17 04:06 - Medical History PMH: Back Problems (neck pain/cervical stenosis), CAD, Hypercholesterolemia Denies: Asthma, HIV, HTN, Chronic Kidney Disease - Family History Family History: States: Unknown Family Hx - Social History Alcohol: > 2 Drinks/Day - Immunization History Hx Tetanus Toxoid Vaccination: No (11 years ago) Hx Influenza Vaccination: No Hx Pneumococcal Vaccination: No - Home Medications Home Medications: Ambulatory Orders Medication Instructions Recorded Albuterol HFA [Ventolin HFA 90 2 puff IH [id number] PRN #1 puff 02/01/17 mcg/actuation (8 g)] - Allergies Allergies/Adverse Reactions: Allergies Allergy/AdvReac Type Severity Reaction Status Date / Time No Known Allergies Allergy Verified 01/28/17 19:38 Review of Systems Constitutional: Negative for: Fever, Chills Cardiovascular: Negative for: Chest Pain, Palpitations Respiratory: Positive for: Shortness of Breath, Wheezing Gastrointestinal: Negative for: Nausea, Vomiting Neurological: Negative for: Weakness, Numbness Physical Exam - Physical Exam Appears: Positive for: Uncomfortable Cardiovascular/Chest: Positive for: Regular Rate, Rhythm. Negative for: Chest Non Tender, Murmur Respiratory: Positive for: Wheezing. Negative for: Decreased Breath Sounds Gastrointestinal/Abdominal: Positive for: Normal Exam, Bowel Sounds, Soft. Negative for: Tenderness, Mass Extremity: Positive for: Swelling. Negative for: Tenderness, Calf Tenderness Neurologic/Psych: Positive for: Alert, foam dispenser II-XII, Oriented. Negative for: Motor/Sensory Deficits - Laboratory Results Result Diagrams: 03/30/17 02:33 03/30/17 02:33 - ECG O2 Sat by Pulse Oximetry: 92 - Radiology X-Ray: Interpreted by Me X-Ray Interpretation: Other (congestion ) - Progress ED Course And Treament: duoneb x4 magnesium 2g x1 125mg steriod cbc, cmp, alcohol, urine drug chest xray Re-evaluation Time: 03:00 Condition: Unchanged Nebulizer Treatments/Peak Flow - Duonebs Number of Bronchodilator Doses given?: 3 - Steroid Treatment Steroid: IV - Clinical Response Clinical Response: Unchanged Disposition - Clinical Impression Clinical Impression: Respiratory distress - Patient ED Disposition Is Patient to be Admitted: Yes - Disposition Disposition Time: 04:00 Condition: FAIR - Pt Status Changed To: Hospital Disposition Of: Inpatient - Admit Certification Admit to Inpatient:: After my assessment, the patient will require hospitalization for at least two midnights. This is because of the severity of symptoms shown, intensity of services needed, and/or the medical risk in this patient being treated as an outpatient.
[2017-03-30] MEDS ORDERED: Magnesium Sulfate 2 gm/50 ml 2 GM/50 ML BAG IVPB ONE (02:33)
[2017-03-30 02:37] LABS: BASO # 0.1 K/uL (0.0-0.2); BASO % 1.2 % (0.0-2.0); EOS # 0.7 K/uL (0.0-0.7); EOS % 10.6 % (0.0-4.0); HEMOGLOBIN 13.2 g/dL (12.0-18.0); LYMPH % 28.3 % (20.0-40.0); MEAN CORPUSCULAR HEMOGLOBIN 30.8 pg (27.0-31.0); MEAN CORPUSCULAR HGB CONC 34.3 g/dL (33.0-37.0); MEAN PLATELET VOLUME 9.3 fl (7.2-11.7); MONO # 0.5 K/uL (0.0-0.8); NEUT # 3.7 K/uL (1.8-7.0); NEUT % 52.9 % (50.0-75.0); NRBC % 0.1 % (0.0-0.0); RBC 4.27 Mil/uL (4.40-5.90); WHITE BLOOD COUNT 6.9 K/uL (4.8-10.8)
[2017-03-30 02:40] LABS: ALBUMIN 4.1 g/dL (3.5-5.0)
[2017-03-30 02:43] LABS: ALB/GLOB RATIO 1.3 (1.0-2.1); ALT/SGPT 33 U/L (21-72); AST/SGOT 20 U/L (17-59); BLOOD UREA NITROGEN 14 mg/dl (9-20); CALCIUM 9.2 mg/dL (8.4-10.2); GFR AFRICAN-AMERICAN > 60; GFR NON-AFRICAN AMERICAN > 60
[2017-03-30] MEDS ORDERED: Albuterol-Ipratrop 3 mg / 0.5 (3 ml) UD ONE (04:00)
--- NOTE | 2017-03-30 04:23 | CP.PCM.HP ---
History of Present Illness - History of Present Illness History of Present Illness: Int# [id number] 61 y/o male smoker with PMHx remarkable for COPD and CAD presents due to worsening SOB, cough, and increased sputum production for the past 3 days. Pt reports he was in his general state of well being 4 days ago, till he ran out of his medication (advair) and began to get short of breath. Symptoms worsened 3 days ago, he began having a productive cough consisting of white foamy sputum as well as throat pain. He attempted to take his granddaughters inhaler but without relief. He also reports decreased exercise tolerance as he was having MCKENZIE after walking about 5 blocks. Pt denies any other symptoms. Denies any fever/chills, headaches, visual disturbances, CP/MCKENZIE/palpitations/orthopnea, N/V /D/C, urinary symptoms, sick contacts. PMD: [facility], various providers during visit PMHx: CAD, COPD, as per Dr. 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 Lives in [place] daughter, unemployed FamilyHx: noncontributory ED COURSE: Vitals on Presentation: Temp:98.1 BP: 109/67 HR: 93 RR: 22 POX: 92 on RA Labs ordered: CBC: 6.9>13.2/38.4<171 CMP: K+ 3.3 A Imaging Ordered: CXR EKG Meds Ordered: Duo Neb 3mg/0.5mg x 5 doses Mag Sulfate 2gm Solumedrol 125mg Methylprednisolone 125mg in NS No improvement Admitted to Med/Surg for further tx/observation Present on Admission - Present on Admission Any Indicators Present on Admission: No Review of Systems - Review of Systems All systems: reviewed and no additional remarkable complaints except - Constitutional Constitutional: As Per HPI Past Patient History - Infectious Disease Hx of Infectious Diseases: None - Tetanus Immunizations Tetanus Immunization: Unknown - Past Medical History & Family History Past Medical History?: Yes - Past Social History Smoking Status: Heavy Smoker > 10 Cigarettes Daily Alcohol: > 2 Drinks/Day Drugs: Denies Home Situation {Lives}: With Family Domestic Violence: Negative - CARDIAC Hx Hypercholesterolemia: Yes Hx Hypertension: No - PULMONARY Hx Asthma: No - NEUROLOGICAL Other/Comment: neck pain, headaches - HEENT Hx HEENT Problems: Yes Other/Comment: Uses glasses nearsighted and farsighted. - RENAL Hx Chronic Kidney Disease: No - ENDOCRINE/METABOLIC Hx Endocrine Disorders: No - HEMATOLOGICAL/ONCOLOGICAL Hx Human Immunodeficiency Virus (HIV): No - INTEGUMENTARY Hx Dermatological Problems: No - MUSCULOSKELETAL/RHEUMATOLOGICAL Hx Musculoskeletal Disorders: Yes (neck pain, headaches) Hx Back Pain: Yes Hx Falls: Yes Other/Comment: spinal stenosis - GASTROINTESTINAL Hx Gastrointestinal Disorders: No - GENITOURINARY/GYNECOLOGICAL Hx Genitourinary Disorders: No - PSYCHIATRIC Hx Psychophysiologic Disorder: No Hx Substance Use: No - SURGICAL HISTORY Hx Surgeries: Yes Other/Comment: Neck surgery - ANESTHESIA Hx Anesthesia: Yes Hx Anesthesia Reactions: No Hx Malignant Hyperthermia: No Meds Allergies/Adverse Reactions: Allergies Allergy/AdvReac Type Severity Reaction Status Date / Time No Known Allergies Allergy Verified 01/28/17 19:38 Physical Exam - Constitutional Appears: Non-toxic, No Acute Distress - Head Exam Head Exam: ATRAUMATIC, NORMOCEPHALIC - Eye Exam Eye Exam: EOMI. absent: Conjunctival injection, Scleral icterus Pupil Exam: PERRL - ENT Exam ENT Exam: Mucous Membranes Moist - Neck Exam Neck exam: Positive for: Full Rom. Negative for: Lymphadenopathy, Tenderness - Respiratory Exam Respiratory Exam: Decreased Breath Sounds, Wheezes, NORMAL BREATHING PATTERN. absent: Accessory Muscle Use, Clear to Auscultation Bilateral, Rales, Rhonchi, Respiratory Distress Additional comments: scattered expiratory wheezes throughout - Cardiovascular Exam Cardiovascular Exam: REGULAR RHYTHM, RRR, +S1, +S2. absent: Bradycardia, Tachycardia, Diastolic murmur, JVD, Rubs, Systolic Murmur - GI/Abdominal Exam GI & Abdominal Exam: Normal Bowel Sounds, Soft. absent: Diminished Bowel Sounds , Firm, Guarding, Organomegaly, Tenderness - Extremities Exam Extremities exam: Positive for: full ROM, pedal edema, pedal pulses present. Negative for: calf tenderness, tenderness Additional comments: 1+ pitting edema b/l - Back Exam Back exam: NORMAL INSPECTION. absent: CVA tenderness (L), CVA tenderness (R) - Neurological Exam Neurological exam: Alert, CN II-XII Intact, Oriented x3 - Psychiatric Exam Psychiatric exam: Normal Affect, Normal Mood Results - Vital Signs Recent Vital Signs: Last Vital Signs Temp 98.3 F 03/30/17 04:06 Pulse 90 03/30/17 04:06 Resp 20 03/30/17 04:06 BP 124/65 03/30/17 04:06 Pulse Ox 92 L 03/30/17 04:22 - Labs Result Diagrams: 03/30/17 02:33 03/30/17 02:33 Labs: Laboratory Results - last 24 hr 03/30/17 03:40 Alcohol, Quantitative 43 H Assessment & Plan (1) COPD exacerbation Assessment and Plan: COPD Pathway f/u Mag level Pulmonology consult appreciated Status: Acute Priority: High (2) DVT prophylaxis Assessment and Plan: scds prn Status: Acute
[2017-03-30 04:45] LABS: BARBITURATES, UR NEGATIVE (NEGATIVE); BENZODIAZEPINES, UR NEGATIVE (NEGATIVE)
[2017-03-30 04:49] LABS: OPIATES, UR NEGATIVE (NEGATIVE); PHENCYCLIDINE, UR NEGATIVE (NEGATIVE)
[2017-03-30 07:42] VITALS: BP 138/89; PULSE 94; RESP 18; TEMP 97.5; O2SAT 95
[2017-03-30] MEDS: Ipratropium 0.02% Inhal Soln (0.5 mg/2.5 ml) UD IH SCH ×2 (08:10→12:12)
[2017-03-30] MEDS: Albuterol 0.083% Inhal Sol (2.5 mg/3 mL) UD INH SCH ×2 (08:10→12:12)
[2017-03-30] MEDS ORDERED: Potassium Chloride 20 mEq/15 ml LIQ UD PO ONE (08:29)
[2017-03-30] MEDS ORDERED: levoFLOXacin 750 MG TAB PO SCH (09:00)
[2017-03-30] MEDS ORDERED: Fluticasone-Salmeterol 100-50mcg Diskus IH SCH (09:00)
[2017-03-30] MEDS ORDERED: Amoxicillin-Clav 875-125 mg Tab PO SCH (09:00)
[2017-03-30] MEDS ORDERED: methylPREDNISolone 40 MG in Sodium Chloride 0.9% 50 ML IVPB SCH (10:00)
[2017-03-30] MEDS ORDERED: methylPREDNISolone 80 MG in Sodium Chloride 0.9% 50 ML IVPB SCH (10:00)
[2017-03-30] MEDS ORDERED: methylPREDNISolone 60 MG in Sodium Chloride 0.9% 50 ML IVPB SCH (10:15)
--- NOTE | 2017-03-30 10:42 | RAD ---
PROCEDURE: CHEST RADIOGRAPH, 1 VIEW HISTORY: sob COMPARISON: Comparison chest 01/31/2017 FINDINGS: LUNGS: Suspect bibasilar atelectasis right greater than left however developing right lower lobe infiltrate could be excluded followup radiographs. Additionally, there are a few scattered peribronchial cuffing changes with slight increased/coarsened and interstitial markings; rule out sequela of reactive/inflammatory airway disease. PLEURA: No pneumothorax or pleural fluid seen. CARDIOVASCULAR: Heart size within range of normal. TheNormal. OSSEOUS STRUCTURES: No significant abnormalities. VISUALIZED UPPER ABDOMEN: Normal. OTHER FINDINGS: None. IMPRESSION: Suspect bibasilar atelectasis right greater than left however developing right lower lobe infiltrate could be excluded followup radiographs.Additionally, there are a few scattered peribronchial cuffing changes with slight increased/coarsened and interstitial markings; rule out sequela of reactive/inflammatory airway disease
--- NOTE | 2017-03-30 10:52 | CARD ---
APPROVED REPORT EKG Measurement Heart [id number] <Conclusion> Sinus rhythm with occasional premature ventricular complexes Cannot rule out Anterior infarct, age undetermined Abnormal ECG
--- NOTE | 2017-03-30 15:10 | CP.PCM.DIS ---
Provider - Provider Date of Admission: 03/30/17 03:38 Attending physician: Lashawn Leonardo MD Consults: Pulmonology, Dr. Salamanca Time Spent in preparation of Discharge (in minutes): 30 Diagnosis - Discharge Diagnosis (1) COPD exacerbation Status: Acute (2) CAD (coronary artery disease) Status: Chronic Hospital Course - Lab Results Lab Results: Most Recent Lab Values WBC 6.9 K/uL (4.8-10.8) 03/30/17 02:33 RBC 4.27 Mil/uL (4.40-5.90) L 03/30/17 02:33 Hgb 13.2 g/dL (12.0-18.0) 03/30/17 02:33 Hct 38.4 % (35.0-51.0) 03/30/17 02:33 MCV 90.0 fl (80.0-94.0) 03/30/17 02:33 MCH 30.8 pg (27.0-31.0) 03/30/17 02:33 MCHC 34.3 g/dL (33.0-37.0) 03/30/17 02:33 RDW 14.0 % (11.5-14.5) 03/30/17 02:33 Plt Count 171 K/uL (130-400) 03/30/17 02:33 MPV 9.3 fl (7.2-11.7) 03/30/17 02:33 Neut % (Auto) 52.9 % (50.0-75.0) 03/30/17 02:33 Lymph % (Auto) 28.3 % (20.0-40.0) 03/30/17 02:33 [place] % (Auto) 7.0 % (0.0-10.0) 03/30/17 02:33 Eos % (Auto) 10.6 % (0.0-4.0) H 03/30/17 02:33 Baso % (Auto) 1.2 % (0.0-2.0) 03/30/17 02:33 Neut # 3.7 K/uL (1.8-7.0) 03/30/17 02:33 Lymph # 2.0 K/uL (1.0-4.3) 03/30/17 02:33 [place] # 0.5 K/uL (0.0-0.8) 03/30/17 02:33 Eos # 0.7 K/uL (0.0-0.7) 03/30/17 02:33 Baso # 0.1 K/uL (0.0-0.2) 03/30/17 02:33 Sodium 139 mmol/l (132-148) 03/30/17 02:33 Potassium 3.3 MMOL/L (3.6-5.0) L 03/30/17 02:33 Chloride 108 mmol/L (98-107) H 03/30/17 02:33 Carbon Dioxide 19 mmol/L (22-30) L 03/30/17 02:33 Anion Gap 15 (10-20) 03/30/17 02:33 BUN 14 mg/dl (9-20) 03/30/17 02:33 Creatinine 0.9 mg/dL (0.8-1.5) 03/30/17 02:33 Est GFR ( Amer) > 60 03/30/17 02:33 Est GFR (Non-Af Amer) > 60 03/30/17 02:33 Random Glucose 120 mg/dL (75-110) H 03/30/17 02:33 Calcium 9.2 mg/dL (8.4-10.2) 03/30/17 02:33 Total Bilirubin 0.6 mg/dl (0.2-1.3) 03/30/17 02:33 AST 20 U/L (17-59) 03/30/17 02:33 ALT 33 U/L (21-72) 03/30/17 02:33 Alkaline Phosphatase 63 U/L (38-126) 03/30/17 02:33 Total Protein 7.3 G/DL (6.3-8.2) 03/30/17 02:33 Albumin 4.1 g/dL (3.5-5.0) 03/30/17 02:33 Globulin 3.2 gm/dL (2.2-3.9) 03/30/17 02:33 Albumin/Globulin Ratio 1.3 (1.0-2.1) 03/30/17 02:33 Urine Opiates Screen Negative (NEGATIVE) 03/30/17 04:20 Urine Methadone Screen Negative (NEGATIVE) 03/30/17 04:20 Ur Barbiturates Screen Negative (NEGATIVE) 03/30/17 04:20 Ur Phencyclidine Scrn Negative (NEGATIVE) 03/30/17 04:20 Ur Amphetamines Screen Negative (NEGATIVE) 03/30/17 04:20 U Benzodiazepines Scrn Negative (NEGATIVE) 03/30/17 04:20 U Oth Cocaine Metabols Positive (NEGATIVE) H 03/30/17 04:20 U Cannabinoids Screen Negative (NEGATIVE) 03/30/17 04:20 Alcohol, Quantitative 43 mg/dl (0-10) H 03/30/17 03:40 - Hospital Course Hospital Course: 61 y/o male smoker with PMHx remarkable for COPD and CAD presents due to worsening SOB, cough, and increased sputum production for the past 3 days, it started after he ran out of Entitle 4 days ago. Denies any associated fever, chest pain, palpitations, chills. During admission pt recieved Methylprednisolone 125mg and levofloxacin was started. He also improved with inhalled Duonebs. Urine was positive for Alcohol(43) and Cocain use. Patient was discharged home on Advair inhaler, Prednisolone 40mg PO and Levofloxacin 750 PO. - Date & Time of H&P Date of H&P: 03/30/17 Time of H&P: 04:23 Discharge Exam - Head Exam Head Exam: ATRAUMATIC, NORMAL INSPECTION, NORMOCEPHALIC - Eye Exam Eye Exam: EOMI, Normal appearance - Neck Exam Neck exam: Full Rom - Respiratory Exam Respiratory Exam: Decreased Breath Sounds, Wheezes, NORMAL BREATHING PATTERN. absent: Accessory Muscle Use, Chest Wall Tenderness - Cardiovascular Exam Cardiovascular Exam: REGULAR RHYTHM, +S1, +S2. absent: Bradycardia, Tachycardia , Irregular Rhythm, +S4, Systolic Murmur - GI/Abdominal Exam GI & Abdominal Exam: Normal Bowel Sounds, Soft. absent: Distended, Tenderness - Back Exam Back exam: absent: CVA tenderness (L), CVA tenderness (R) - Neurological Exam Neurological exam: Alert, CN II-XII Intact, Oriented x3 - Psychiatric Exam Psychiatric exam: Normal Affect - Skin Skin Exam: Normal Color Discharge Plan - Discharge Medications Prescriptions: Fluticasone/Salmeterol 250/50 [Advair Diskus] 1 puff IH Q12 #1 inhaler levoFLOXacin [Levaquin] 750 mg PO DAILY #4 tab predniSONE [predniSONE Tab] 40 mg PO DAILY #3 tab - Follow Up Plan Condition: FAIR Disposition: HOME/ ROUTINE Instructions: How to Stop Smoking (DC), COPD (Chronic Obstructive Pulmonary Disease) (DC) Additional Instructions: Instructed on proper inhaler use daily Counselled on smoking cessation Complete course of levofloxacin and prednisone daily, to complete 5 days total Follow up with PCP after discharge ED precautions given Referrals: [facility] [place] [Outside]
== END 2017-03-30 15:00 | disposition home or self-care (01) ==
LOC: H.ER 01:58 → H.ERHOLD 03:38 → H.MEDSURG1 04:30 → H.ERHOLD 04:33
PROVIDERS: ADMIT Family Medicine Geriatric Medicine; ATTEND Family Medicine Geriatric Medicine
DX: J44.1 Chronic obstructive pulmonary disease with (acute) exacerbation (principal); E78.00 Pure hypercholesterolemia, unspecified; M54.2 Cervicalgia; M48.02 Spinal stenosis, cervical region; F17.200 Nicotine dependence, unspecified, uncomplicated; I25.10 Atherosclerotic heart disease of native coronary artery without angina pectoris; R07.0 Pain in throat

== ENCOUNTER 2017-04-11 22:11 | Emergency (ER) | payer SELFPAY ==
[2017-04-11 22:12] VITALS: BMI 31.9
[2017-04-11 22:19] VITALS: BP 132/85; PULSE 93; RESP 16; TEMP 97.8; O2SAT 96
--- NOTE | 2017-04-11 23:01 | ED PDOC ---
Lower Extremity Pain/Injury Time Seen by Provider: 04/11/17 22:28 Chief Complaint (Nursing): Lower Extremity Problem/Injury Chief Complaint (Provider): right knee pain History Per: Patient History/Exam Limitations: no limitations Additional Complaint(s): 61yo M in ED for eval of right knee epain noted 3 days ago and worsening since. pt states that he felt a cracking sound in knee without acute injury. no hx o arthritis. admits to swelling without radiation of pain or tingling sensation to LE. Past Medical History Reviewed: Historical Data, Nursing Documentation, Vital Signs Vital Signs: Last Vital Signs Temp 97.8 F 04/11/17 22:17 Pulse 93 H 04/11/17 22:17 Resp 16 04/11/17 22:17 BP 132/85 04/11/17 22:17 Pulse Ox 96 04/11/17 22:17 - Medical History PMH: Back Problems (neck pain/cervical stenosis), CAD, COPD, Hypercholesterolemia Denies: Asthma, HIV, HTN, Chronic Kidney Disease - Family History Family History: States: Unknown Family Hx - Immunization History Hx Tetanus Toxoid Vaccination: No (11 years ago) Hx Influenza Vaccination: No Hx Pneumococcal Vaccination: No - Home Medications Home Medications: Ambulatory Orders Medication Instructions Recorded Albuterol HFA [Ventolin HFA 90 2 puff IH [id number] PRN #1 puff 02/01/17 mcg/actuation (8 g)] Fluticasone/Salmeterol 250/50 1 puff IH Q12 #1 inhaler 03/30/17 [Advair Diskus] levoFLOXacin [Levaquin] 750 mg PO DAILY #4 tab 03/30/17 predniSONE [predniSONE Tab] 40 mg PO DAILY #3 tab 03/30/17 Ketorolac Tromethamine [Toradol] 10 mg PO TID #20 cap 04/11/17 - Allergies Allergies/Adverse Reactions: Allergies Allergy/AdvReac Type Severity Reaction Status Date / Time No Known Allergies Allergy Verified 04/11/17 22:17 Review of Systems ROS Statement: Except As Marked, All Systems Reviewed And Found Negative Musculoskeletal: Positive for: Other (knee pain) Physical Exam - Reviewed Nursing Documentation Reviewed: Yes Vital Signs Reviewed: Yes - Physical Exam Appears: Positive for: Non-toxic, No Acute Distress, Uncomfortable Skin: Positive for: Normal Color, Warm, DRY Cardiovascular/Chest: Positive for: Regular Rate, Rhythm Respiratory: Positive for: CNT, Normal Breath Sounds Extremity: Positive for: Other (right knee: mild swelling noted to knee. Ant. knee pain., dec ROM due to pain. nuerovasc intact. ) Neurologic/Psych: Positive for: Alert, Oriented - ECG O2 Sat by Pulse Oximetry: 96 - Radiology X-Ray: Interpreted by Me (dec space btw joints no fx noted. ) Medical Decision Making Medical Decision Making: pt given knee immobilizer with f.u with orthopedics and motrin in ED. Disposition - Clinical Impression Clinical Impression: Knee pain - Patient ED Disposition Is Patient to be Admitted: No Counseled Patient/Family Regarding: Diagnosis, Need For Followup, Rx Given - Disposition Referrals: [facility] [Outside] [facility] [place] [facility] [Outside] Disposition Time: 23:02 Condition: STABLE Prescriptions: Ketorolac Tromethamine [Toradol] 10 mg PO TID #20 cap Instructions: Swollen Knee Joint (ED), Knee Pain (ED), Arthralgia (ED) Print Language: CHINESE
--- NOTE | 2017-04-12 08:15 | RAD ---
PROCEDURE: Right Knee Radiographs. HISTORY: knee pain COMPARISON: None. FINDINGS: BONES: Normal. No fracture. JOINTS: Moderate degenerative change of the medial compartment with marginal spur formation and compartmental narrowing. JOINT EFFUSION: None. OTHER FINDINGS: None. IMPRESSION: Moderate degenerative change of the medial compartment with marginal spur formation and compartmental narrowing.
== END 2017-04-11 23:06 | disposition home or self-care (01) ==
LOC: H.ER 22:11
DX: M17.11 Unilateral primary osteoarthritis, right knee (principal); E78.00 Pure hypercholesterolemia, unspecified

== ENCOUNTER 2017-05-17 00:14 | Emergency (ER) | payer MEDICAID, OTHER, SELFPAY ==
[2017-05-17 00:14] VITALS: BMI 31.6
--- NOTE | 2017-05-17 00:22 | ED PDOC ---
HPI: Back Time Seen by Provider: 05/17/17 00:22 Chief Complaint (Provider): low back pain History Per: Patient, EMS Additional Complaint(s): Patient presents to ED with low back pain s/p heavy lifting 3 days ago. Patient was seen yesterday at [facility] for same and x-rays of L/S Spine were completed and showed no acute fx or dis. Patient was given rx for pain meds but he was not able to fill the rx meds as he does not have any money. Patient arrives this evening via ambulance for further evaluation. He states earlier he took ibuprofen but this only helped minimally. Patient denies any associated bowel or bladder dysfunction. Past Medical History Reviewed: Historical Data, Nursing Documentation, Vital Signs - Medical History PMH: Back Problems, CAD, COPD, Hypercholesterolemia - Surgical History Other surgeries: cervical fusion - Family History Family History: States: No Known Family Hx - Living Arrangements Living Arrangements: With Family - Social History Current smoker - smoking cessation education provided: Yes (1/2 ppd) Alcohol: None Drugs: Denies - Home Medications Home Medications: Ambulatory Orders Medication Instructions Recorded Ibuprofen [Motrin Tab] 600 mg PO Q8 #30 tab 05/15/17 Lidocaine 5% [Lidoderm] 1 patch TP DAILY #30 patch 05/15/17 diaZEpam [Valium] 2 mg PO TID #15 tab 05/15/17 traMADol [Ultram] 50 mg PO Q6 #20 tab 05/15/17 - Allergies Allergies/Adverse Reactions: Allergies Allergy/AdvReac Type Severity Reaction Status Date / Time No Known Allergies Allergy Verified 05/15/17 18:54 Review of Systems ROS Statement: Except As Marked, All Systems Reviewed And Found Negative Constitutional: Negative for: Fever Cardiovascular: Negative for: Chest Pain Respiratory: Negative for: Cough Gastrointestinal: Negative for: Nausea, Vomiting Genitourinary Male: Negative for: Dysuria, Frequency, Incontinence Musculoskeletal: Positive for: Back Pain. Negative for: Leg Pain Physical Exam - Reviewed Nursing Documentation Reviewed: Yes Vital Signs Reviewed: Yes - Physical Exam Appears: Positive for: Well, Non-toxic, Uncomfortable Skin: Positive for: Normal Color. Negative for: Rash Eye Exam: Positive for: Normal appearance, EOMI, PERRL Cardiovascular/Chest: Positive for: Regular Rate, Rhythm Respiratory: Positive for: Normal Breath Sounds Back: Positive for: Vertebral Tenderness (lumbar). Negative for: L CVA Tenderness, R CVA Tenderness Neurologic/Psych: Positive for: Alert, Oriented, Gait (steady) - ECG O2 Sat by Pulse Oximetry: 100 Pulse Ox Interpretation: Normal Medical Decision Making Medical Decision Making: Impression: Lumbar strain Plan: IM toradol IM IM solumedrol IM PO flexeril 10 mg PO tramadol 50 mg Patient feels better after meds given. Previous records reviewed, patient was seen on May 15 at [facility] and was prescribed Motrin, Valium, tramadol and Lidoderm patch. Patient still has these prescriptions and was advised to fill them at local pharmacy. Patient was referred to clinic for follow-up. Disposition - Clinical Impression Clinical Impression: Back strain - Patient ED Disposition Is Patient to be Admitted: No Counseled Patient/Family Regarding: Diagnosis, Need For Followup - Disposition Referrals: [facility] [Outside] [facility] [Outside] Disposition: Routine/Home Disposition Time: 01:33 Condition: IMPROVED Additional Instructions: FILL THE PRESCRIPTIONS YOU WERE GIVEN 2 DAYS AGO FROM YOUR PREVIOUS ED VISIT SOON POSSIBLE. FOLLOW UP WITH CLINIC IN 1-2 DAYS. Instructions: Back Pain (ED) Forms: [facility] (Fijian)
[2017-05-17 00:35] VITALS: BP 139/81; PULSE 69; RESP 18; TEMP 97.5; O2SAT 100
== END 2017-05-17 06:04 | disposition home or self-care (01) ==
LOC: H.ER 00:14
DX: M54.9 Dorsalgia, unspecified (principal)
CPT/HCPCS: 96372; 99281; J1885; J2930

== ENCOUNTER 2018-02-13 07:37 | Emergency (ER) | payer SELFPAY ==
[2018-02-13 07:46] VITALS: O2SAT 98
[2018-02-13 07:48] VITALS: BMI 27.2
--- NOTE | 2018-02-13 08:12 | ED PDOC ---
HPI: Back Time Seen by Provider: 02/13/18 07:39 Chief Complaint (Nursing): Back Pain Chief Complaint (Provider): left lower back pain History Per: Patient History/Exam Limitations: no limitations Onset/Duration Of Symptoms: Days (20) Current Symptoms Are (Timing): Still Present (worsening over past 7 days) Quality Of Discomfort: Aching Pain Scale Rating Of: 10 Previous Symptoms: Back Pain, Chronic Pain (all over body) Exacerbating Factor(s): Turning, Movement, Sitting, Standing Additional Complaint(s): 62 yr old M brought in by EMS with complaint of severe left low back pain. EMS reports patient was outside waiting for them. Patient reports back pain is 10/10 , aggravated by walking, standing or any movement, has been there 20 days, worsening over last 7 days. Pain is minimally alleviated by Naproxen, last dose was this morning 750mg. Denies injury or previous history of back pain. Denies urinary or fecal incontinence, weakness, numbness, fevers or chills, dysuria. [facility] records reviewed: patient has hx chronic back pain evaluated at [facility] and [facility] with lumbosacral xrays in 09/2016 and 04/2017 showing no fracture or abnormality. Reports constipation. Works car shop (putting foam in cars). PMD: [facility] PMHx: COPD, chronic pain SurgHx: c-spine surgery with Dr. Dumont 2013 SocHx: chronic smoker, 7 cig daily (40 pack yrs), denies Etoh or drugs Medications: Naproxen PRN Allergies: NKDA - Risk Factors AAA Risk Factors: Pos: Older Than 49 Years Of Age Neg: Hypertension Past Medical History Vital Signs: Last Vital Signs Temp 97.9 F 02/13/18 07:46 Pulse 68 02/13/18 07:46 Resp 16 02/13/18 07:46 BP 120/82 02/13/18 07:46 Pulse Ox 98 02/13/18 07:46 - Medical History PMH: Back Problems, CAD, COPD, Hypercholesterolemia Denies: Asthma, HIV, HTN, Chronic Kidney Disease - Surgical History Other surgeries: c-spine procedure 2013 - Family History Family History: States: Unknown Family Hx - Social History Current smoker - smoking cessation education provided: Yes (40 pack yrs, now 7 cig daily) Alcohol: None Drugs: Denies - Immunization History Hx Tetanus Toxoid Vaccination: No (11 years ago) Hx Influenza Vaccination: No Hx Pneumococcal Vaccination: No - Home Medications Home Medications: Ambulatory Orders Medication Instructions Recorded Cyclobenzaprine [Cyclobenzaprine 10 mg PO TID #10 tab 02/13/18 HCl] Lidocaine 5% [Lidoderm] 1 ea TD DAILY #10 patch 02/13/18 Naproxen [Naprosyn] 500 mg PO Q12H #20 tab 02/13/18 - Allergies Allergies/Adverse Reactions: Allergies Allergy/AdvReac Type Severity Reaction Status Date / Time No Known Allergies Allergy Verified 05/15/17 18:54 Review of Systems Constitutional: Negative for: Fever, Chills Eyes: Negative for: Vision Change ENT: Negative for: Ear Pain, Throat Pain Cardiovascular: Negative for: Chest Pain, Palpitations, Light Headedness Respiratory: Negative for: Cough, Shortness of Breath, Wheezing Gastrointestinal: Positive for: Constipation. Negative for: Nausea, Vomiting, Abdominal Pain, Diarrhea Genitourinary Male: Negative for: Dysuria, Frequency Musculoskeletal: Positive for: Back Pain (left lower back). Negative for: Neck Pain, Shoulder Pain, Arm Pain, Leg Pain, Foot Pain Skin: Negative for: Rash, Lesions Neurological: Negative for: Weakness, Numbness, Confusion Physical Exam - Physical Exam Appears: Positive for: No Acute Distress Head Exam: Positive for: ATRAUMATIC, NORMOCEPHALIC Skin: Positive for: Normal Color, Warm, Dry Eye Exam: Positive for: EOMI, PERRL ENT: Negative for: Pharyngeal Erythema, Tonsillar Exudate Neck: Positive for: Painless ROM, Supple Cardiovascular/Chest: Positive for: Regular Rate, Rhythm. Negative for: Gallop , Murmur Respiratory: Positive for: Normal Breath Sounds. Negative for: Rales, Rhonchi Pulses-Carotid (L): 2+ Pulses-Carotid (R): 2+ Pulses-Radial (L): 2+ Pulses-Radial (R): 2+ Gastrointestinal/Abdominal: Positive for: Bowel Sounds (normal), Soft. Negative for: Tenderness Back: Positive for: Other (point tenderness over L5 paraspinal area, no skin changes or deformity, negative straight leg test bilaterally, limited back extension and flexion due to pain). Negative for: L CVA Tenderness, R CVA Tenderness, Vertebral Tenderness Extremity: Positive for: Normal ROM. Negative for: Pedal Edema, Calf Tenderness , Deformity Neurologic/Psych: Positive for: Alert, clinical application manager II-XII (grossly intact), Oriented, Mood/Affect (normal/full range). Negative for: Motor/Sensory Deficits - ECG O2 Sat by Pulse Oximetry: 98 - Progress ED Course And Treament: -Lidocaine 5% patch once -Valium 10mg PO once -Toradol 30mg IM once -10:46 Patient pain improved, vitals remained stable Re-evaluation Time: 10:15 Condition: Re-examined, Improved Disposition - Clinical Impression Clinical Impression: Chronic back pain - Patient ED Disposition Is Patient to be Admitted: No Counseled Patient/Family Regarding: Diagnosis, Need For Followup, Rx Given - Disposition Referrals: Brandan Morales MD [Staff Provider] - Disposition: Routine/Home Disposition Time: 10:47 Condition: IMPROVED Additional Instructions: -Follow up with your PMD within 2-3 days -Take medications as prescribed , precaution with flexeril may cause dizziness -Return to ED if symptoms persist, worsen or if any concerns Prescriptions: Cyclobenzaprine [Cyclobenzaprine HCl] 10 mg PO TID #10 tab Lidocaine 5% [Lidoderm] 1 ea TD DAILY #10 patch Naproxen [Naprosyn] 500 mg PO Q12H #20 tab Instructions: Chronic Pain (DC) Forms: [employer] (South Sudanese)
[2018-02-13] MEDS ORDERED: Lidocaine 5% Patch TD ONE ×2 (08:37→08:54)
[2018-02-13 11:27] VITALS: BP 127/85; PULSE 81; RESP 14; TEMP 97.5
== END 2018-02-13 11:34 | disposition home or self-care (01) ==
LOC: H.ER 07:37
DX: M54.9 Dorsalgia, unspecified (principal); E78.00 Pure hypercholesterolemia, unspecified; G89.29 Other chronic pain; I25.10 Atherosclerotic heart disease of native coronary artery without angina pectoris; J44.9 Chronic obstructive pulmonary disease, unspecified; K59.00 Constipation, unspecified
CPT/HCPCS: 96372; 99283; J1885

== ENCOUNTER 2018-03-02 11:01 | Emergency (ER) | payer SELFPAY ==
[2018-03-02 11:25] VITALS: BP 111/77; PULSE 77; TEMP 97; O2SAT 99
[2018-03-02 11:26] VITALS: BMI 30.5
[2018-03-02 12:43] LABS: BASO # 0.1 K/uL (0.0-0.2); BASO % 0.9 % (0.0-2.0); EOS # 0.2 K/uL (0.0-0.7); EOS % 2.5 % (0.0-4.0); HEMOGLOBIN 13.8 g/dL (12.0-18.0); LYMPH % 25.7 % (20.0-40.0); MEAN CELL VOLUME 88.3 fl (80.0-94.0); MEAN PLATELET VOLUME 9.6 fl (7.2-11.7); MONO # 0.7 K/uL (0.0-0.8); MONO % 8.6 % (0.0-10.0); NEUT # 4.7 K/uL (1.8-7.0); NEUT % 62.3 % (50.0-75.0); RBC 4.59 Mil/uL (4.40-5.90); RED CELL DISTRIBUTION WIDTH 14.8 % (11.5-14.5); WHITE BLOOD COUNT 7.6 K/uL (4.8-10.8)
[2018-03-02 12:47] LABS: ALB/GLOB RATIO 1.3 (1.0-2.1); ALBUMIN 3.7 g/dL (3.5-5.0); ALT/SGPT 35 U/L (21-72); AST/SGOT 28 U/L (17-59); BLOOD UREA NITROGEN 18 mg/dl (9-20); CALCIUM 8.9 mg/dL (8.4-10.2); GFR AFRICAN-AMERICAN > 60; GFR NON-AFRICAN AMERICAN > 60
--- NOTE | 2018-03-02 13:22 | ED PDOC ---
HPI: General Adult Time Seen by Provider: 03/02/18 11:41 Chief Complaint (Nursing): Male Genitourinary Chief Complaint (Provider): Rectal pain x 15 days, some blood with hard BM History Per: Patient History/Exam Limitations: no limitations Onset/Duration Of Symptoms: Days Have you had recent travel within the past 21 days to any of the following countries: [place], [place], [place] or [place]?: No Current Symptoms Are (Timing): Still Present Past Medical History Vital Signs: Last Vital Signs Temp 97 F L 03/02/18 11:25 Pulse 77 03/02/18 11:25 Resp BP 111/77 03/02/18 11:25 Pulse Ox 99 03/02/18 11:25 - Medical History PMH: Back Problems, CAD, COPD, Hypercholesterolemia Denies: Asthma, HIV, HTN, Chronic Kidney Disease - Family History Family History: States: Unknown Family Hx - Immunization History Hx Tetanus Toxoid Vaccination: No (11 years ago) Hx Influenza Vaccination: No Hx Pneumococcal Vaccination: No - Home Medications Home Medications: Ambulatory Orders Medication Instructions Recorded Cyclobenzaprine [Cyclobenzaprine 10 mg PO TID #10 tab 02/13/18 HCl] Lidocaine 5% [Lidoderm] 1 ea TD DAILY #10 patch 02/13/18 Naproxen [Naprosyn] 500 mg PO Q12H #20 tab 02/13/18 Docusate [Colace] 100 mg PO Q12H PRN #10 cap 03/02/18 Hydrocortisone 2.5% (Rectal) 30 applic [place] BID #1 tube 03/02/18 [Anusol-HC] - Allergies Allergies/Adverse Reactions: Allergies Allergy/AdvReac Type Severity Reaction Status Date / Time No Known Allergies Allergy Verified 05/15/17 18:54 - Laboratory Results Result Diagrams: 03/02/18 12:30 03/02/18 12:30 - ECG O2 Sat by Pulse Oximetry: 99 Disposition - Clinical Impression Clinical Impression: External hemorrhoid - Patient ED Disposition Is Patient to be Admitted: No - Disposition Referrals: Non [facility] Provider, [Primary Care Provider] - Disposition: Routine/Home Disposition Time: 13:18 Condition: STABLE Prescriptions: Docusate [Colace] 100 mg PO Q12H PRN #10 cap PRN Reason: Constipation Hydrocortisone 2.5% (Rectal) [Anusol-HC] 30 applic [place] BID #1 tube Instructions: Hemorrhoids (DC) Print Language: BOTSWANAN
== END 2018-03-02 13:56 | disposition home or self-care (01) ==
LOC: SUPCPDRO 11:01 → H.ER 11:01
DX: K64.8 Other hemorrhoids (principal); E78.00 Pure hypercholesterolemia, unspecified; I25.10 Atherosclerotic heart disease of native coronary artery without angina pectoris; J44.9 Chronic obstructive pulmonary disease, unspecified; K64.4 Residual hemorrhoidal skin tags

== ENCOUNTER 2018-07-20 18:19 | Emergency (ER) | payer OTHER, SELFPAY ==
[2018-07-20 18:19] VITALS: BMI 30.5
[2018-07-20 18:24] VITALS: BP 128/73; PULSE 90; RESP 18; TEMP 98.2; O2SAT 100
--- NOTE | 2018-07-20 19:43 | ED PDOC ---
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 Patient reports he was lifting boxes and heard a crack in his back, causing right leg pain. At the time of the incident, patient was seen at [facility] on 07/15 where he had an MRI of the lumbar spine showing multiple disc herniations and nerve root impingements. Patient was sent home with prescriptions for Flexeril and Percocet and was advised to follow up outpatient. However, patient states he was unable to follow up with a doctor and needs to file disability paperwork. Patient is requesting admission since he is unable to obtain disability papers to excuse him from work. Patient denies fever/chills, weakness/numbness, saddle anesthesia, incontinence, urinary symptoms, abdominal pain, N/V/D, chest pain, SOB/cough. PMD: none Past Medical History Reviewed: Historical Data, Nursing Documentation, Vital Signs Vital Signs: Last Vital Signs Temp 98.2 F 07/20/18 18:21 Pulse 90 07/20/18 18:21 Resp 18 07/20/18 18:21 BP 128/73 07/20/18 18:21 Pulse Ox 100 07/20/18 18:21 - Medical History PMH: Back Problems, CAD, COPD, Hypercholesterolemia - Surgical History Surgical History: No Surg Hx - Family History Family History: States: Unknown Family Hx - Social History Current smoker - smoking cessation education provided: Yes (Heavy Smoker > 10 Cigarettes Daily) Alcohol: Other (Drinks 2 beers/day) Drugs: Denies - Home Medications Home Medications: Ambulatory Orders Medication Instructions Recorded Cyclobenzaprine [Cyclobenzaprine 10 mg PO TID #10 tab 02/13/18 HCl] Lidocaine 5% [Lidoderm] 1 ea TD DAILY #10 patch 02/13/18 Naproxen [Naprosyn] 500 mg PO Q12H #20 tab 02/13/18 Hydrocortisone 2.5% (Rectal) 30 applic [place] BID #1 tube 03/02/18 [Anusol-HC] RX: Docusate [Colace] 100 mg PO Q12H PRN #10 cap 03/02/18 ALPRAZolam [Xanax] 0.25 mg PO BID #7 tab 05/04/18 - Allergies Allergies/Adverse Reactions: Allergies Allergy/AdvReac Type Severity Reaction Status Date / Time No Known Allergies Allergy Verified 05/15/17 18:54 Review of Systems ROS Statement: Except As Marked, All Systems Reviewed And Found Negative Musculoskeletal: Positive for: Back Pain, Leg Pain (right) Physical Exam - Reviewed Nursing Documentation Reviewed: Yes Vital Signs Reviewed: Yes - Physical Exam Comments: GENERAL APPEARANCE: Patient is awake, alert, oriented x 3, in no acute distress. Resting comfortably. SKIN: Warm, dry; (-) cyanosis. NECK: Supple, FROM CHEST AND RESPIRATORY: (-) rales, (-) rhonchi, (-) wheezes; breath sounds equal bilaterally. Respirations even and nonlabored, speaking in full sentences. HEART AND CARDIOVASCULAR: (-) irregularity ABDOMEN AND GI: Soft; (-) tenderness (-) palpable mass (-) distention (-) guarding (-) CVA tenderness. BACK: (+) right paralumbar tenderness, (+) right sciatic notch tenderness, (-) palpable bony deformity. EXTREMITIES: (-) deformity. Distal pulses good bilaterally. NEURO AND PSYCH: Mental status as above. Intact sensation of lower extremities bilaterally. Gait: steady. Speech: clear. Strength of lower extremities symmetric with normal plantar flexion and dorsiflexion of toes. (-) facial asymmetry (-) focal deficit - ECG O2 Sat by Pulse Oximetry: 100 (RA) Pulse Ox Interpretation: Normal Medical Decision Making Medical Decision Making: Initial Impression: Acute back pain, herniated disc s/p work injury Initial Plan: Lengthy conversation with the patient explaining that disability paperwork could not be obtained from the ED or from the medical floors upstairs. Advised patient he would have to follow up at clinic or with ortho to be excused from work for a prolonged period of time. No further intervention required in ED at this time. Patient advised to use prescribed medications from [facility] for pain management. Vitals stable. Lab /Diagnostic results d/w the patient in great detail. Diagnosis of acute back pain, lumbar disc herniations d/w the patient. Based on history, exam and diagnostic results, plan will be for outpatient follow up as directed. Patient instructed to follow-up with pmd / referral provided / the clinic in 1- 2 days without fail. Return to the emergency room at any time for any new or worsening symptoms. Patient states he fully agrees with and understands discharge instructions. States that he agrees with the plan and disposition. Verbalized and repeated discharge instructions and plan. I have given the patien t opportunity to ask any additional questions. Patient ambulated from ED exam room without any further incident. Scribe Attestation: Documented by David Bae acting as a scribe for Padmaja GHOTRA Provider Scribe Attestation: All medical record entries made by the Scribe were at my direction and personally dictated by me. I have reviewed the chart and agree that the record accurately reflects my personal performance of the history, physical exam, medical decision making, and the department course for this patient. I have also personally directed, reviewed, and agree with the discharge instructions and disposition. Disposition - Clinical Impression Clinical Impression: Low back pain, Herniated disc - Patient ED Disposition Is Patient to be Admitted: No Counseled Patient/Family Regarding: Studies Performed, Diagnosis - Disposition Referrals: [facility] [Outside] Marko Brown III, MD [Staff Provider] - Disposition: Routine/Home Disposition Time: 19:00 Condition: STABLE Additional Instructions: La atencin mdica de emergencia que recibi hoy se dirigi a doris sntomas agudos. Si le recetaron algn medicamento, llnelo y tmelo segn las indicaciones. Los sntomas pueden tardar varios muñiz en resolverse. Regrese al Departamento de Emergencias si doris sntomas empeoran, no mejoran o si tiene otros problemas. Comunquese con dwyer mdico dentro de 2 muñiz para romeo nueva evaluacin y tevin un seguimiento o llame a wilfred de los mdicos / clnicas a los que ayoub sido referido y que figuran en el formulario de Informacin de visita al paciente que se incluye en dwyer paquete de maria del carmen. Lleve con usted a dwyer consulta de seguimiento toda la documentacin que recibi del maria del carmen junto con los medicamentos que est tomando. Nuestro tratamiento no puede reemplazar la atencin mdica continua por parte de un proveedor de atencin primaria (PCP) fuera del departamento de emergencias. Instructions: Low Back Pain in Adults, Herniated Disc, Herniated Disc Exercises Forms: [facility] ([place] Citizen) Print Language: MALDIVIAN - POA Present On Arrival: None
== END 2018-07-20 19:49 | disposition home or self-care (01) ==
LOC: H.ER 18:19
DX: M54.5 Low back pain (principal); S33.101A Dislocation of unspecified lumbar vertebra, initial encounter; X50.0XXA Overexertion from strenuous movement or load, initial encounter; Y92.9 Unspecified place or not applicable; Y99.0 Civilian activity done for income or pay; F17.210 Nicotine dependence, cigarettes, uncomplicated; J44.9 Chronic obstructive pulmonary disease, unspecified; I25.10 Atherosclerotic heart disease of native coronary artery without angina pectoris